=== PATIENT | male | born 2000 | race African-American/Black ===

== ENCOUNTER 2020-05-05 03:13 | Emergency (ER) | payer OTHER ==
[~2020-05-05] VITALS: Ht 193 cm; Wt 77.1 kg
[2020-05-05] MEDS ORDERED: NALOXONE HCL 1MG/ML 2ML SYRINGE IV ONE (03:30)
[2020-05-05] MEDS ORDERED: ONDANSETRON HCL 4 MG/2 ML VIAL IV ONE ×2 (03:45)
[2020-05-05 05:00] VITALS: BP 100/38
== END 2020-05-05 05:49 | disposition home or self-care (01) ==
LOC: ER 03:17
DX: T40.2X1A Poisoning by other opioids, accidental (unintentional), initial encounter (principal); Y92.89 Other specified places as the place of occurrence of the external cause
CPT/HCPCS: 96374; 96375; 99284; J2310; J2405